=== PATIENT | female | born 1960 | race Caucasian/White ===

== ENCOUNTER → 2017-02-25 | Outpatient (CLI) | payer BC ==
[2017-02-25 08:47] LABS: CHLORIDE,CL 105 mmol/L (98-110); SODIUM,NA 138 mmol/L (136-146)
== END ==
LOC: MW.CHIM 08:02
PROVIDERS: ATTEND Internal Medicine
DX: E11.9 Type 2 diabetes mellitus without complications (principal); E78.5 Hyperlipidemia, unspecified
CPT/HCPCS: 36415; 80053; 80061; 83036; 85025

== ENCOUNTER → 2017-03-17 | Outpatient (CLI) | payer BC ==
--- NOTE | 2017-03-17 17:15 | MY ---
EXAMINATION: Bilateral digital mammography utilizing CAD. HISTORY: Screening exam. Comparison is made to previous studies dated 03/13/2016, 03/31/2015, 03/10/20 15. FINDINGS: Bilateral scattered fibroglandular densities. No suspicious calcifications, masses or architectural distortions. No pathologic appearing lymph nodes, no abnormal skin thickening or nip ple inversion. CAD highlighted regions appear normal at this time. IMPRESSION: BI-RADS category I - negative mammogram. Continued screening according to ACR-ACS gu idelines suggested. THE FALSE-NEGATIVE RATE OF MAMMOGRAM IS APPROXIMATELY 10%. MANAGEMENT OF A PALPABLE ABNORMALITY MUST BE BASED UPON CLINICAL GROUNDS. SENSITIVITY FOR DETECTION OF ABNORMALITIES IN DENSE BREASTS IS LOW. NOTE: A letter will be sent to the patient regarding findings. [facility] -- SETH Moya [phone] - FAX [phone]
== END ==
LOC: MW.MAM 13:42
PROVIDERS: ATTEND Obstetrics & Gynecology
DX: Z12.31 Encounter for screening mammogram for malignant neoplasm of breast (principal)
CPT/HCPCS: G0202; G0202-26

== ENCOUNTER 2020-07-11 06:47 | Day surgery (SDC) | payer BC ==
[~2020-07-11 06:47] MED LIST: Lactated Ringers 1,000 ML IV SCH; Sodium Chloride 0.9% 10 ML SDV IV PRN; Sodium Chloride 0.9% 10 ML Syringe FLUSH PRN; Sodium Chloride 0.9% 2.5 ML Syringe FLUSH PRN
[2020-07-11] MEDS ORDERED: Lidocaine 2% 5 ML SDV ONE (07:05)
[2020-07-11] MEDS ORDERED: Glycopyrrolate 0.2 MG/ML SDV ONE (07:05)
[2020-07-11] MEDS ORDERED: Ondansetron 4 MG/2 ML SDV ONE (07:05)
[2020-07-11] MEDS ORDERED: Midazolam 1 MG/ML 2 ML SDV ONE (07:05)
[2020-07-11] MEDS ORDERED: Rocuronium Bromide 50 MG/5 ML Syringe ONE (07:05)
[2020-07-11] MEDS ORDERED: Propofol 200 MG/20 ML SDV ONE (07:05)
[2020-07-11] MEDS ORDERED: fentaNYL 250 MCG/5 ML SDV ONE (07:05)
[2020-07-11] MEDS ORDERED: Ketorolac 30 MG/ML SDV ONE (07:05)
--- NOTE | 2020-07-11 07:31 | PCM.PREANE ---
Preanesthetic Assessment - Anesthesia/Transfusion/Family Hx Anesthesia History: Prior Anesthesia Without Reaction Other Type of Anesthesia Reaction Comment: Denies any known probem in past Family History of Anesthesia Reaction: No Transfusion History: No Prior Transfusion(s) Intubation History: Unknown - Review of Systems General: No Symptoms Pulmonary: No Symptoms Cardiovascular: No Symptoms Gastrointestinal: Abdominal Pain Neurological: No Symptoms Other: Reports: None - Physical Assessment Height: 5 ft 4 in Weight: 93.44 kg ASA Class: 3 Mental Status: Alert & Oriented x3 Airway Class: Mallampati = 2 Dentition: Reports: Partial (upper front, removable) Thyro-Mental Finger Breadths: 2 Mouth Opening Finger Breadths: 3 ROM/Head Extension: Limited/Partial Lungs: Clear to Auscultation, Normal Respiratory Effort Cardiovascular: Regular Rate, Regular Rhythm - Allergies Allergies/Adverse Reactions: Allergies Allergy/AdvReac Type Severity Reaction Status Date / Time No Known Allergies Allergy Verified 07/11/20 07:26 - Blood Blood Available: No - Anesthesia Plan Pre-Op Medication Ordered: None - Acknowledgements Anesthesia Type Planned: General Anesthesia Pt an Appropriate Candidate for the Planned Anesthesia: Yes Alternatives and Risks of Anesthesia Discussed w Pt/Guardian: Yes Pt/Guardian Understands and Agrees with Anesthesia Plan: Yes PreAnesthesia Questionnaire Other HEENT History: reading glasses, upper partial Cardiovascular History: Reports: High Cholesterol Respiratory History: Reports: Other (See Below) Other Respiratory History: has inhaler for "asthma like symptoms", denies asth ma Gastrointestinal History: Reports: Cholelithiasis, GERD Genitourinary History: Reports: None MINE TECHNICIAN History: Reports: Polycystic Ovaries Musculoskeletal History: Reports: Fracture Other Musculoskeletal History: hx: fractured wrist Neurological History: Reports: Neuropathy, Diabetic Psychiatric History: Reports: Anxiety Endocrine/Metabolic History: Reports: Diabetes, Type II (diagnosed '15), Obe sity/BMI 30+ Hematologic History: Reports: None Immunologic History: Reports: None Oncologic (Cancer) History: Reports: None Dermatologic History: Reports: None - Past Surgical History Head Surgeries/Procedures: Reports: None HEENT Surgical History: Reports: Cataract Surgery, Tonsillectomy Cardiovascular Surgical History: Reports: None Respiratory Surgical History: Reports: None GI Surgical History: Reports: Colonoscopy Female Surgical History: Reports: D&C, Other (See Below) Other Female Surgeries/Procedures: diagnostic hysteroscopy with D&C Endocrine Surgical History: Reports: None Neurological Surgical History: Reports: None Musculoskeletal Surgical History: Reports: None Oncologic Surgical History: Reports: None Dermatological Surgical History: Reports: None - SUBSTANCE USE Smoking Status *Q: Never Smoker Recreational Drug Use History: No - HOME MEDS Home Medications: Home Meds Simvastatin 20 mg PO DAILY 05/10/15 [History] Venlafaxine HCl 25 tab PO BID 05/10/15 [History] Albuterol [Proair HFA] 1 - 2 puff INH ASDIRECTED PRN 07/05/20 [History] Dulaglutide [Trulicity] 0.5 ml SUBCUT WEEKLY 07/05/20 [History] Insulin Aspart [NovoLOG] 1 injection SUBCUT ASDIRECTED 07/05/20 [History] Insulin Degludec [Tresiba] 72 units SUBCUT BEDTIME 07/05/20 [History] Ketoconazole [Nizoral 2% Crm] 1 applic TOP ASDIRECTED PRN 07/05/20 [History] Scopolamine [Transderm-Scop] 1 patch TRDERM ONETIME 07/05/20 [History] lisinopriL [Lisinopril] 2.5 mg PO DAILY 07/05/20 [History] - CURRENT (IN HOUSE) MEDS Current Meds: Current Medications Lactated Ringer's (Ringers, Lactated) 1,000 mls @ 125 mls/hr IV ASDIRECTED [place] Last Admin: 07/11/20 07:25 Dose: 125 mls/hr Documented by: Sodium Chloride (Normal Saline) 10 ml IV ASDIRECTED PRN PRN Reason: IV Use Sodium Chloride (Saline Flush) 10 ml FLUSH ASDIRECTED PRN PRN Reason: Keep Vein Open Sodium Chloride (Saline Flush) 2.5 ml FLUSH ASDIRECTED PRN PRN Reason: Keep Vein Open Discontinued Medications Fentanyl (Sublimaze) Confirm Administered Dose 250 mcg .ROUTE .STK-MED ONE Stop: 07/11/20 07:06 Glycopyrrolate (Robinul) Confirm Administered Dose 0.8 mg .ROUTE .STK-MED ONE Stop: 07/11/20 07:06 Ketorolac Tromethamine (Toradol) Confirm Administered Dose 30 mg .ROUTE .STK-MED ONE Stop: 07/11/20 07:06 Lidocaine (Xylocaine-Mpf 2%) Confirm Administered Dose 5 ml .ROUTE .STbepretty-MED ONE Stop: 07/11/20 07:06 Midazolam HCl (Versed 1 Mg/Ml) Confirm Administered Dose 2 mg .ROUTE .[employer]-MED ONE Stop: 07/11/20 07:06 Ondansetron HCl (Zofran) Confirm Administered Dose 4 mg .ROUTE .[email or web address] ONE Stop: 07/11/20 07:06 Propofol (Diprivan 20 Ml) Confirm Administered Dose 200 mg .ROUTE .SincerelyMED ONE Stop: 07/11/20 07:06 Rocuronium Zebulon (Rocuronium Zebulon) Confirm Administered Dose 50 mg .ROUTE .SincerelyMED ONE Stop: 07/11/20 07:06
[2020-07-11] MEDS ORDERED: Bupivacaine 0.5% 30 ML SDV ONE (07:39)
[2020-07-11] MEDS ORDERED: ceFAZolin 1 GM Vial ONE (07:53)
[2020-07-11] MEDS ORDERED: Sodium Chloride 0.9% 20 ML ONE (07:53)
[2020-07-11] MEDS ORDERED: fentaNYL 100 MCG/2 ML SDV IVPUSH PRN (08:32)
[2020-07-11] MEDS ORDERED: Acetaminophen 1,000 MG in Premix Bag 1 BAG IV PRN (08:32)
--- NOTE | 2020-07-11 09:45 | PCM.OPNOTE ---
- General Post-Op/Procedure Note Date of Surgery/Procedure: 07/11/20 Operative Procedure(s): Laparoscopic cholecystectomy Findings: Normal appearing gallbladder. Pre Op Diagnosis: Symptomatic cholelithiasis Post-Op Diagnosis: same Anesthesia Technique: General ET Tube Primary Surgeon: Bisi Parks Fluid Replacement, Intraop: 1,400 Output, Urine Amount: 50 EBL in mLs: 5 Condition: Good
[2020-07-11] MEDS ORDERED: Acetaminophen/oxyCODONE 325-5 MG Tab PO PRN (09:54)
[2020-07-11] MEDS ORDERED: Albuterol/Ipratropium 3.0-0.5 MG/3 ML Neb Soln ONE (10:03)
[2020-07-11] MEDS ORDERED: Albuterol/Ipratropium 3.0-0.5 MG/3 ML Neb Soln NEB ONE (10:09)
--- NOTE | 2020-07-11 10:20 | PCM.POSTAN ---
POST ANESTHESIA ASSESSMENT - MENTAL STATUS Mental Status: Alert, Oriented - VITAL SIGNS Vital Signs: Last Vital Signs Temp 36.5 C 07/11/20 07:29 Pulse 87 07/11/20 10:07 Resp 10 L 07/11/20 10:07 BP 135/87 07/11/20 10:07 Pulse Ox 97 07/11/20 10:07 - RESPIRATORY Respiratory Status: Respiratory Rate WNL, Airway Patent, O2 Saturation Stable - CARDIOVASCULAR CV Status: Pulse Rate WNL, Blood Pressure Stable - GASTROINTESTINAL GI Status: No Symptoms - PAIN Pain Score: 0 - POST OP HYDRATION Hydration Status: Adequate & Stable - OBSERVATIONS Free Text/Narrative:: No anesthesia problems
--- NOTE | 2020-07-11 11:34 | PCM48HPAN ---
Post Anesthesia Note - EVALUATION WITHIN 48HRS OF ANESTHETIC Vital Signs in Normal Range: Yes Patient Participated in Evaluation: Yes Respiratory Function Stable: Yes Airway Patent: Yes Cardiovascular Function Stable: Yes Hydration Status Stable: Yes Pain Control Satisfactory: Yes Nausea and Vomiting Control Satisfactory: Yes Mental Status Recovered: Yes Vital Signs: Last Vital Signs Temp 36.5 C 07/11/20 07:29 Pulse 86 07/11/20 10:17 Resp 19 07/11/20 10:17 BP 141/68 H 07/11/20 10:17 Pulse Ox 93 L 07/11/20 10:17 - COMMENTS/OBSERVATIONS Free Text/Narrative:: No anesthesia problems
[2020-07-11 15:15] VITALS: BP 127/71; PULSE 74
--- NOTE | 2020-07-11 17:08 | OR ---
SURGEON: BISI PARKS MD DATE OF PROCEDURE: 07/11/2020 PREOPERATIVE DIAGNOSIS: Symptomatic cholelithiasis. POSTOPERATIVE DIAGNOSIS: Symptomatic cholelithiasis. PROCEDURE PERFORMED: Laparoscopic cholecystectomy. PRIMARY SURGEON: Bisi Parks MD ANESTHESIA: General endotracheal anesthesia. FLUIDS: 1400 mL of crystalloid. ESTIMATED BLOOD LOSS: 5 mL. URINE OUTPUT: 50 mL. FINDINGS: Grossly normal-appearing gallbladder. COMPLICATIONS: None. INDICATIONS: The patient is a 60-year-old female who presented with intermittent right upper quadrant pain that had become more frequent and severe. Preoperative imaging revealed cholelithiasis. The patient and I discussed the pathophysiology of biliary disease. It was determined that her symptoms were most likely from symptomatic cholelithiasis. I explained the need for a cholecystectomy. I would attempt it laparoscopically, but convert to open should I be unable to perform it successfully. The patient and I discussed the procedure, expected perioperative course, and risks including bleeding, infection, or damage to surrounding structures. She verbalized understanding and wishes to proceed. PROCEDURE IN DETAIL: The patient was brought into the OR and placed on the OR table in supine position. A time-out was completed verifying the patient's name, age, date of , allergies, and procedure to be performed. General endotracheal anesthesia was induced. The left arm was tucked to the patient's side and a Ferreira catheter placed. The abdomen was prepped and draped in usual standard fashion. I anesthetized an area along the supraumbilical midline with 0.5% Marcaine plain. An 11 blade was used to make a 3 cm incision along this area. Cautery was used to dissect down to the level of subcutaneous fat. I then bluntly dissected down to the fascia. The fascia was then grasped with Mallory's and elevated. It was incised sharply with Payne scissors. Entry into the abdomen was palpated digitally. Stay sutures were placed on either side with 0 Vicryl sutures. A 12 mm Vahid trocar was inserted in the abdomen and it was insufflated. A 5 mm 30 degree scope was inserted. I inspected the area underneath my initial trocar placement. No damage to surrounding structures was noted. The patient was placed into reverse Trendelenburg position and airplaned slightly to the left. Trocars were placed in the following locations under direct visualization. One 5 mm trocar in the epigastric area, one 5 mm trocar in the right flank, and one 5 mm trocar along the right subcostal margin in the midclavicular line. The gallbladder was grasped and elevated. The gallbladder itself did not appear grossly inflamed or attached to any surrounding structures. I began my dissection along the proximal half of the gallbladder. Using hook cautery and blunt dissection, I was able to dissect out my critical view. The artery appeared small and so I carried my dissection up the cystic plate approximately usp. Once I was assured of my critical view, I doubly clipped and ligated the cystic artery. I then triply clipped and ligated the cystic duct. I was close to the gallbladder as I could. The remainder of the attachments of the gallbladder wall to the cystic plate were taken down using electrocautery. The gallbladder was then placed in an Endo Catch bag and removed through the 12 mm port site. I inspected my operative field. It appeared to be hemostatic with no evidence of biliary drainage. A small amount of irrigation was used around the area and suctioned out. My 5 mm trocars were removed under direct visualization and the abdomen allowed to desufflate. I then removed my 12 mm trocar as well. The fascia at the supraumbilical port site was closed with interrupted 0 Vicryl sutures. The subcutaneous fat was closed with multiple layers of interrupted 3-0 Vicryl suture and the skin was closed with a running 4-0 Monocryl stitch. The 5 mm trocar sites were closed with interrupted 4-0 Monocryl sutures. Steri-Strips and sterile dressings were applied. The patient tolerated the procedure well and was transferred to the PACU in stable condition. All counts were complete and correct at the end of the case. TUNDE / REJI /[id number]
== END 2020-07-11 12:00 | disposition home or self-care (01) ==
LOC: MW.SDS 06:47
PROVIDERS: ATTEND Surgery
DX: K80.10 Calculus of gallbladder with chronic cholecystitis without obstruction (principal); E78.00 Pure hypercholesterolemia, unspecified; K21.9 Gastro-esophageal reflux disease without esophagitis; E66.9 Obesity, unspecified; F41.9 Anxiety disorder, unspecified; E11.42 Type 2 diabetes mellitus with diabetic polyneuropathy; E78.5 Hyperlipidemia, unspecified; Z79.4 Long term (current) use of insulin; Z79.899 Other long term (current) drug therapy; Z68.35 Body mass index [BMI] 35.0-35.9, adult
CPT/HCPCS: 47562; 88304; J0690; J1885; J2001; J2250; J2405; J2704; J3010; J3490; J7120; 00790; J7620-GY

== ENCOUNTER 2022-03-15 10:11 | Emergency (ER) | payer BC ==
[2022-03-15] MEDS ORDERED: Sodium Chloride 0.9% 1,000 ML IV ONE (10:38)
[2022-03-15] MEDS ORDERED: Sodium Chloride 0.9% 2.5 ML Syringe FLUSH PRN (10:38)
[2022-03-15] MEDS ORDERED: Sodium Chloride 0.9% 10 ML Syringe FLUSH PRN (10:38)
[2022-03-15] MEDS ORDERED: Ondansetron 4 MG/2 ML SDV IVPUSH ONE ×2 (10:38→10:40)
[2022-03-15 11:29] LABS: CARBON DIOXIDE,CO2 27.1 mmol/L (21.0-32.0); POTASSIUM,K 4.3 mmol/L (3.5-5.1)
[2022-03-15] MEDS ORDERED: Aspirin 81 MG Tab.Chew PO ONE (12:50)
[2022-03-15] MEDS ORDERED: Clopidogrel 75 MG Tab PO ONE (12:50)
[2022-03-15] MEDS ORDERED: cefTRIAXone 1 GM in Sodium Chloride 0.9% 50 ML IV ONE (15:05)
[2022-03-15 15:34] VITALS: BP 134/82; PULSE 92
== END 2022-03-15 15:34 | disposition home or self-care (01) ==
LOC: MW.ED 10:11
DX: N39.0 Urinary tract infection, site not specified (principal); E78.00 Pure hypercholesterolemia, unspecified; K21.9 Gastro-esophageal reflux disease without esophagitis; E11.40 Type 2 diabetes mellitus with diabetic neuropathy, unspecified; E66.9 Obesity, unspecified; Z68.34 Body mass index [BMI] 34.0-34.9, adult; Z90.49 Acquired absence of other specified parts of digestive tract; Z88.8 Allergy status to other drugs, medicaments and biological substances; Z79.899 Other long term (current) drug therapy; Z79.4 Long term (current) use of insulin
CPT/HCPCS: 36415; 74176; 80053; 81001; 83690; 85025; 96374; 96375; 99284; J0696; J2405; J3490; J7030

== ENCOUNTER 2023-03-11 12:54 | Inpatient (IN) | payer BC ==
[2023-03-11] MEDS ORDERED: Lactated Ringers 2,000 ML IV ONE (13:16)
[2023-03-11] MEDS ORDERED: Sodium Chloride 0.9% 2.5 ML Syringe FLUSH PRN (13:16)
[2023-03-11] MEDS ORDERED: Ondansetron 4 MG/2 ML SDV IVPUSH ONE (13:16)
[2023-03-11] MEDS ORDERED: Sodium Chloride 0.9% 10 ML Syringe FLUSH PRN (13:16)
[2023-03-11 13:37] LABS: HEMATOCRIT 53.5 % (36.0-46.0); HEMOGLOBIN 17.6 g/dL (12.0-16.0); MEAN CORPUSCULAR HEMOGLOBIN 26.8 pg (27.0-32.0); MEAN CORPUSCULAR HGB CONC 32.9 g/dL (31.0-37.0); MEAN CORPUSCULAR VOLUME 81.4 fL (80.0-98.0); PLATELET COUNT,PLT 471 K/uL (150-400); RED BLOOD CELL COUNT 6.57 M/uL (4.30-5.90); WHITE BLOOD CELL COUNT,WBC 28.35 K/uL (4.0-11.0)
[2023-03-11 13:42] LABS: A/G RATIO 0.7 (0.9-1.6); ALBUMIN 3.9 g/dL (3.4-5.0); BILIRUBIN TOTAL 0.6 mg/dL (0.2-1.0); CALCIUM 10.5 mg/dL (8.5-10.1); CREATININE 1.6 mg/dL (0.6-1.0); EST CRCL DRUG DOSING (CG) 31.08 mL/min; POTASSIUM,K 3.5 mmol/L (3.5-5.1); PROTEIN TOTAL,TP 9.2 g/dL (6.4-8.2)
[2023-03-11 13:56] LABS: BASE EXCESS VENOUS -3.3 (-2.0-3.0); PH,VENOUS 7.32 (7.31-7.41)
[2023-03-11 14:03] LABS: LACTIC ACID 3.1 mmol/L (0.4-2.0)
[2023-03-11 14:04] LABS: LYMPHOCYTES ABSOLUTE MAN 1.7 (0.6-2.4); LYMPHOCYTES PERCENT MAN 6 % (16.0-40.0); MONOCYTES ABSOLUTE MAN 0.9 (0.0-0.8); MONOCYTES PERCENT MAN 3 % (0.0-15.0); SEG NEUTROPHILS ABSOLUTE MAN 25.8 (1.4-5.7); SEG NEUTROPHILS PERCENT MAN 91 % (48.0-80.0)
[2023-03-11] MEDS ORDERED: Metoclopramide 10 MG/2 ML SDV IVPUSH ONE (14:25)
[2023-03-11] MEDS ORDERED: Cefepime 2 GM in Sodium Chloride 0.9% 50 ML IV ONE (14:50)
[2023-03-11] MEDS ORDERED: VANCOmycin 1.75 GM/350 ML 1.75 GM in Premix Bag 1 BAG IV ONE (15:30)
[2023-03-11] MEDS ORDERED: Lactated Ringers 1,000 ML IV ONE (15:56)
[2023-03-11] MEDS ORDERED: fentaNYL 100 MCG/2 ML SDV ONE ×2 (17:31→21:09)
[2023-03-11] MEDS ORDERED: Propofol 200 MG/20 ML SDV ONE (17:31)
[2023-03-11] MEDS ORDERED: Dexmedetomidine 200 MCG/2 ML SDV ONE (17:33)
[2023-03-11] MEDS ORDERED: ePHEDrine 50 MG/ML SDV ONE (17:33)
[2023-03-11] MEDS ORDERED: Phenylephrine HCl 0.5 MG/5 ML AMP ONE (17:33)
[2023-03-11] MEDS ORDERED: Succinylcholine/Sod PF 100 MG/5 ML SYRINGE IV ONE (17:33)
[2023-03-11] MEDS ORDERED: Dexamethasone 4 MG/ML 5 ML MDV ONE (17:33)
[2023-03-11] MEDS ORDERED: Ondansetron 4 MG/2 ML SDV ONE (17:33)
[2023-03-11] MEDS ORDERED: Ketorolac 30 MG/ML SDV ONE (17:33)
[2023-03-11] MEDS ORDERED: Lidocaine 1% 5 ML VIAL ONE (17:33)
[2023-03-11] MEDS ORDERED: Water For Injection, Sterile 20 ML ONE (17:36)
[2023-03-11] MEDS ORDERED: Ropivacaine 0.5% 5 MG/ML 30 ML SDV ONE (17:38)
[2023-03-11] MEDS ORDERED: Ketamine 500 mg/10 ML MDV ONE (17:41)
[2023-03-11] MEDS ORDERED: Magnesium Sulfate (4.06 MEQ/ML) 5 GM/10 ML SDV ONE (18:35)
[2023-03-11] MEDS ORDERED: Albumin 5% 250 ML ONE ×2 (18:40→19:26)
[2023-03-11] MEDS ORDERED: Ondansetron 4 MG/2 ML SDV IVPUSH PRN (20:42)
[2023-03-11] MEDS ORDERED: HYDROmorphone 2 MG/ML Syringe IVPUSH PRN (20:42)
[2023-03-11] MEDS ORDERED: Cyclobenzaprine 5 MG Tab PO PRN (20:42)
[2023-03-11] MEDS ORDERED: Acetaminophen/HYDROcodone 325-5 MG Tab PO PRN (20:42)
[2023-03-11 21:52] LABS: BASOPHILS PERCENT AUTO 0.1 % (0.0-1.5); HEMATOCRIT 41.9 % (36.0-46.0); HEMOGLOBIN 13.9 g/dL (12.0-16.0); LYMPHOCYTES ABSOLUTE AUTO 0.7 K/uL (0.6-2.4); LYMPHOCYTES PERCENT AUTO 4.4 % (16.0-40.0); MEAN CORPUSCULAR HEMOGLOBIN 27.3 pg (27.0-32.0); MEAN CORPUSCULAR HGB CONC 33.2 g/dL (31.0-37.0); MEAN CORPUSCULAR VOLUME 82.2 fL (80.0-98.0); MONOCYTES ABSOLUTE AUTO 0.4 K/uL (0.0-0.8); MONOCYTES PERCENT AUTO 2.6 % (0.0-15.0); NEUTROPHILS ABSOLUTE AUTO 14.9 K/uL (1.4-5.7); NEUTROPHILS PERCENT AUTO 92.9 % (48.0-80.0); PLATELET COUNT,PLT 375 K/uL (150-400)
[2023-03-11 22:25] LABS: A/G RATIO 0.9 (0.9-1.6); ALBUMIN 3.1 g/dL (3.4-5.0); BILIRUBIN TOTAL 0.6 mg/dL (0.2-1.0); CALCIUM 8.2 mg/dL (8.5-10.1); CARBON DIOXIDE,CO2 24.3 mmol/L (21.0-32.0); CREATININE 1.2 mg/dL (0.6-1.0); EST CRCL DRUG DOSING (CG) 41.44 mL/min; POTASSIUM,K 4.3 mmol/L (3.5-5.1); PROTEIN TOTAL,TP 6.5 g/dL (6.4-8.2)
[2023-03-11] MEDS: Lactated Ringers 1,000 ML IV SCH (23:11)
[2023-03-11] MEDS: Piperacillin/Tazobactam 3.375 GM in Sodium Chloride 0.9% 100 ML IV SCH (23:12)
[2023-03-12] MEDS ORDERED: 50% Dextrose in Water 50 ML Syringe IVPUSH PRN (00:57)
[2023-03-12] MEDS ORDERED: Glucagon,Human Recombinant 1 MG Vial IM PRN (00:57)
[2023-03-12 01:55] LABS: LACTIC ACID 1.3 mmol/L (0.4-2.0)
[2023-03-12] MEDS: Insulin Aspart 100 Units/ML 3 ML Pen SUBCUT SCH ×4 (01:55→18:01)
[2023-03-12] MEDS: INSULIN DEGLUDEC 100 UNIT/ML SUBCUT SCH ×2 (01:56→20:40)
[2023-03-12] MEDS: Piperacillin/Tazobactam 3.375 GM in Sodium Chloride 0.9% 100 ML IV SCH ×4 (06:02→23:15)
[2023-03-12 06:51] LABS: BASOPHILS PERCENT AUTO 0.1 % (0.0-1.5); HEMATOCRIT 39.7 % (36.0-46.0); HEMOGLOBIN 13.1 g/dL (12.0-16.0); LYMPHOCYTES ABSOLUTE AUTO 1.1 K/uL (0.6-2.4); LYMPHOCYTES PERCENT AUTO 5.5 % (16.0-40.0); MEAN CORPUSCULAR HEMOGLOBIN 27.2 pg (27.0-32.0); MEAN CORPUSCULAR VOLUME 82.4 fL (80.0-98.0); MONOCYTES ABSOLUTE AUTO 0.7 K/uL (0.0-0.8); MONOCYTES PERCENT AUTO 3.6 % (0.0-15.0); NEUTROPHILS ABSOLUTE AUTO 17.8 K/uL (1.4-5.7); NEUTROPHILS PERCENT AUTO 90.8 % (48.0-80.0); PLATELET COUNT,PLT 363 K/uL (150-400); RED BLOOD CELL COUNT 4.82 M/uL (4.30-5.90); WHITE BLOOD CELL COUNT,WBC 19.57 K/uL (4.0-11.0)
[2023-03-12 06:58] LABS: A/G RATIO 0.9 (0.9-1.6); ALBUMIN 2.8 g/dL (3.4-5.0); BILIRUBIN TOTAL 1.1 mg/dL (0.2-1.0); CARBON DIOXIDE,CO2 25.4 mmol/L (21.0-32.0); CREATININE 1.2 mg/dL (0.6-1.0); EST CRCL DRUG DOSING (CG) 41.44 mL/min; POTASSIUM,K 4.3 mmol/L (3.5-5.1)
[2023-03-12] MEDS ORDERED: HYDROmorphone 1 MG/ML Syringe IVPUSH PRN (07:27)
[2023-03-12] MEDS: Lactated Ringers 1,000 ML IV SCH ×2 (07:36→18:05)
[2023-03-12] MEDS: Pantoprazole 40 MG in Sodium Chloride 0.9% 10 ML IVPUSH SCH (09:35)
[2023-03-12] MEDS: Nystatin Topical Powder 15 GM Bottle TOP SCH ×2 (13:50→23:13)
[2023-03-12] MEDS: Enoxaparin 40 MG/0.4 ML Syringe SUBCUT SCH (16:24)
[2023-03-12] MEDS: Acetaminophen 1,000 MG in Premix Bag 1 BAG IV PRN (20:33)
[2023-03-13] MEDS: Dextrose 5%-0.9% NaCl 1,000 ML IV SCH ×3 (00:59→22:49)
[2023-03-13] MEDS: Insulin Aspart 100 Units/ML 3 ML Pen SUBCUT SCH ×4 (02:44→18:22)
[2023-03-13] MEDS: Piperacillin/Tazobactam 3.375 GM in Sodium Chloride 0.9% 100 ML IV SCH ×3 (05:21→17:50)
[2023-03-13] MEDS: Nystatin Topical Powder 15 GM Bottle TOP SCH ×3 (05:26→21:38)
[2023-03-13 05:54] LABS: BASOPHILS PERCENT AUTO 0.3 % (0.0-1.5); EOSINOPHILS ABSOLUTE AUTO 0.1 K/uL (0.0-0.7); EOSINOPHILS PERCENT AUTO 0.7 % (0.0-7.0); HEMATOCRIT 34.9 % (36.0-46.0); HEMOGLOBIN 11.2 g/dL (12.0-16.0); LYMPHOCYTES ABSOLUTE AUTO 1.5 K/uL (0.6-2.4); LYMPHOCYTES PERCENT AUTO 12.4 % (16.0-40.0); MEAN CORPUSCULAR HEMOGLOBIN 26.5 pg (27.0-32.0); MEAN CORPUSCULAR HGB CONC 32.1 g/dL (31.0-37.0); MEAN CORPUSCULAR VOLUME 82.7 fL (80.0-98.0); MONOCYTES ABSOLUTE AUTO 0.7 K/uL (0.0-0.8); MONOCYTES PERCENT AUTO 6.1 % (0.0-15.0); NEUTROPHILS ABSOLUTE AUTO 9.6 K/uL (1.4-5.7); NEUTROPHILS PERCENT AUTO 80.5 % (48.0-80.0); NRBC ABSOLUTE 0 K/uL; PLATELET COUNT,PLT 300 K/uL (150-400); RED BLOOD CELL COUNT 4.22 M/uL (4.30-5.90); WHITE BLOOD CELL COUNT,WBC 11.96 K/uL (4.0-11.0)
[2023-03-13 06:05] LABS: CALCIUM 7.6 mg/dL (8.5-10.1); CARBON DIOXIDE,CO2 27.6 mmol/L (21.0-32.0); EST CRCL DRUG DOSING (CG) 49.72 mL/min; POTASSIUM,K 3.7 mmol/L (3.5-5.1)
[2023-03-13] MEDS: Pantoprazole 40 MG in Sodium Chloride 0.9% 10 ML IVPUSH SCH (09:15)
[2023-03-13] MEDS: Acetaminophen 1,000 MG in Premix Bag 1 BAG IV PRN ×2 (11:04→21:37)
[2023-03-13] MEDS: Enoxaparin 40 MG/0.4 ML Syringe SUBCUT SCH (14:36)
[2023-03-13] MEDS: INSULIN DEGLUDEC 100 UNIT/ML SUBCUT SCH (21:40)
[2023-03-14] MEDS: Piperacillin/Tazobactam 3.375 GM in Sodium Chloride 0.9% 100 ML IV SCH ×4 (00:13→18:27)
[2023-03-14] MEDS: Insulin Aspart 100 Units/ML 3 ML Pen SUBCUT SCH ×4 (00:32→18:34)
[2023-03-14] MEDS: Nystatin Topical Powder 15 GM Bottle TOP SCH ×3 (05:55→22:44)
[2023-03-14 06:20] LABS: BASOPHILS PERCENT AUTO 0.5 % (0.0-1.5); EOSINOPHILS ABSOLUTE AUTO 0.3 K/uL (0.0-0.7); EOSINOPHILS PERCENT AUTO 2.9 % (0.0-7.0); HEMATOCRIT 37.4 % (36.0-46.0); HEMOGLOBIN 11.8 g/dL (12.0-16.0); LYMPHOCYTES ABSOLUTE AUTO 1.7 K/uL (0.6-2.4); MEAN CORPUSCULAR HEMOGLOBIN 26.5 pg (27.0-32.0); MEAN CORPUSCULAR HGB CONC 31.6 g/dL (31.0-37.0); MEAN CORPUSCULAR VOLUME 83.9 fL (80.0-98.0); MONOCYTES ABSOLUTE AUTO 0.5 K/uL (0.0-0.8); MONOCYTES PERCENT AUTO 5.7 % (0.0-15.0); NEUTROPHILS ABSOLUTE AUTO 6.3 K/uL (1.4-5.7); NEUTROPHILS PERCENT AUTO 71.9 % (48.0-80.0); NRBC ABSOLUTE 0 K/uL; PLATELET COUNT,PLT 314 K/uL (150-400); RED BLOOD CELL COUNT 4.46 M/uL (4.30-5.90); WHITE BLOOD CELL COUNT,WBC 8.75 K/uL (4.0-11.0)
[2023-03-14 06:43] LABS: A/G RATIO 0.6 (0.9-1.6); ALBUMIN 2.3 g/dL (3.4-5.0); BILIRUBIN TOTAL 0.7 mg/dL (0.2-1.0); CALCIUM 7.9 mg/dL (8.5-10.1); CREATININE 0.9 mg/dL (0.6-1.0); EST CRCL DRUG DOSING (CG) 55.25 mL/min; MAGNESIUM 2.1 mg/dL (1.8-2.4); PHOSPHORUS 2.3 mg/dL (2.6-4.7); POTASSIUM,K 3.6 mmol/L (3.5-5.1); PROTEIN TOTAL,TP 5.9 g/dL (6.4-8.2)
[2023-03-14] MEDS ORDERED: Acetaminophen 325 MG Tab PO PRN (07:47)
[2023-03-14] MEDS ORDERED: Dextrose 5%-0.9% NaCl 1,000 ML IV SCH (07:49)
[2023-03-14] MEDS: Pantoprazole 40 MG in Sodium Chloride 0.9% 10 ML IVPUSH SCH (08:28)
[2023-03-14] MEDS: Phosphorus #1 250 MG Tab PO SCH ×3 (08:42→18:27)
[2023-03-14] MEDS ORDERED: Phosphorus #1 250 MG Tab PO SCH (12:00)
[2023-03-14] MEDS: Enoxaparin 40 MG/0.4 ML Syringe SUBCUT SCH (13:59)
[2023-03-14] MEDS ORDERED: INSULIN DEGLUDEC 15 UNIT SUBCUT SCH (21:00)
[2023-03-15] MEDS: Phosphorus #1 250 MG Tab PO SCH (00:18)
[2023-03-15] MEDS: Piperacillin/Tazobactam 3.375 GM in Sodium Chloride 0.9% 100 ML IV SCH ×3 (00:20→13:15)
[2023-03-15] MEDS: Insulin Aspart 100 Units/ML 3 ML Pen SUBCUT SCH ×3 (00:38→13:16)
[2023-03-15] MEDS: Nystatin Topical Powder 15 GM Bottle TOP SCH (05:09)
[2023-03-15 06:16] LABS: BASOPHILS PERCENT AUTO 0.3 % (0.0-1.5); HEMATOCRIT 37.5 % (36.0-46.0); LYMPHOCYTES ABSOLUTE AUTO 1.6 K/uL (0.6-2.4); LYMPHOCYTES PERCENT AUTO 17.3 % (16.0-40.0); MEAN CORPUSCULAR HEMOGLOBIN 26.3 pg (27.0-32.0); MEAN CORPUSCULAR VOLUME 82.1 fL (80.0-98.0); MONOCYTES ABSOLUTE AUTO 0.5 K/uL (0.0-0.8); MONOCYTES PERCENT AUTO 5.9 % (0.0-15.0); NEUTROPHILS ABSOLUTE AUTO 6.9 K/uL (1.4-5.7); NEUTROPHILS PERCENT AUTO 76.5 % (48.0-80.0); NRBC ABSOLUTE 0 K/uL; PLATELET COUNT,PLT 357 K/uL (150-400); RED BLOOD CELL COUNT 4.57 M/uL (4.30-5.90); WHITE BLOOD CELL COUNT,WBC 9.01 K/uL (4.0-11.0)
[2023-03-15 06:37] LABS: CALCIUM 8.4 mg/dL (8.5-10.1); CARBON DIOXIDE,CO2 24.5 mmol/L (21.0-32.0); CREATININE 0.9 mg/dL (0.6-1.0); EST CRCL DRUG DOSING (CG) 55.25 mL/min; MAGNESIUM 1.9 mg/dL (1.8-2.4); POTASSIUM,K 3.8 mmol/L (3.5-5.1)
[2023-03-15 08:25] VITALS: BP 136/69; PULSE 69
[2023-03-15] MEDS: Pantoprazole 40 MG in Sodium Chloride 0.9% 10 ML IVPUSH SCH (08:52)
[2023-03-15] MEDS: Enoxaparin 40 MG/0.4 ML Syringe SUBCUT SCH (14:37)
== END 2023-03-15 15:30 | disposition home or self-care (01) | DRG 231 ==
LOC: MW.ED 12:54 → MW.MS 16:42 → MW.ED 18:19
PROVIDERS: ADMIT Surgery; ATTEND Surgery
PROC: 0DTF0ZZ Resection of Right Large Intestine, Open Approach (ICD-10-PCS; principal; 2023-03-11)
DX: K56.2 Volvulus (principal); N17.9 Acute kidney failure, unspecified; K21.9 Gastro-esophageal reflux disease without esophagitis; E86.0 Dehydration; F41.9 Anxiety disorder, unspecified; I10 Essential (primary) hypertension; K56.7 Ileus, unspecified; E11.65 Type 2 diabetes mellitus with hyperglycemia; B37.9 Candidiasis, unspecified; E11.40 Type 2 diabetes mellitus with diabetic neuropathy, unspecified; E66.9 Obesity, unspecified; E78.5 Hyperlipidemia, unspecified; Z88.8 Allergy status to other drugs, medicaments and biological substances; Z79.899 Other long term (current) drug therapy; Z98.49 Cataract extraction status, unspecified eye; Z90.49 Acquired absence of other specified parts of digestive tract; Z90.89 Acquired absence of other organs; Z98.890 Other specified postprocedural states; Z79.4 Long term (current) use of insulin; Z68.35 Body mass index [BMI] 35.0-35.9, adult
CPT/HCPCS: 36415; 71045; 71045-26; 74176; 74176-26; 80048; 80053; 82803; 82947; 83605; 83690; 83735; 84100; 85025; 96361; 96365; 96366; 96367; 96375; 99285; 99285-25; A9270-GY; C9113; J0131; J0330; J0692; J1100; J1650; J1815-GY; J1885; J2370; J2405; J2543; J2704; J2765; J2795; J3010; J3370; J3475; J3490; J7042; J7120; P9045